=== PATIENT | female | born 1955 | race Caucasian/White ===

== ENCOUNTER 2022-08-25 09:19 | Outpatient (CLI) | payer MEDICARE, SELFPAY ==
[2022-08-25 10:02] LABS: Hematocrit 50.7 % (35.0-42.0); Hemoglobin 16.6 g/dL (11.7-13.8); Mean Corpuscular HGB Conc 32.7 g/dL (32.0-36.0); Mean Corpuscular Hemoglobin 34.3 pg (27.0-31.0); Mean Corpuscular Volume 104.8 fL (78.0-102.0); Mean Platelet Volume 9.5 fl (9.2-11.8); Platelet Count Result 299 K/mm3 (150-420); Red Blood Count 4.84 M/mm3 (4.20-5.40); Red Cell Distribution Width 13.3 % (11.6-14.4); White Blood Count 9.4 K/mm3 (4.8-10.8)
[2022-08-25 10:44] LABS: Alanine Aminotransferase 21 U/L (14-59); Albumin Level 3.6 g/dL (3.4-5.0); Alkaline Phosphatase 117 U/L (46-116); Anion Gap 10 mmol/L (8-16); Aspartate Amino Transferase 10 U/L (15-37); Bilirubin,Total 0.4 mg/dL (0.00-1.00); Blood Urea Nitrogen 14 mg/dL (7-18); Calcium 9.1 mg/dL (8.5-10.1); Carbon Dioxide 26 mmol/L (21-32); Chloride 102 mmol/L (98-108); Cholesterol 215 mg/dL (0-200); Estimated Glomerular Filt Rate > 60; Folic Acid 8.2 ng/mL (8.6->20); Glucose 87 mg/dL (70-99); HDL Direct 53 mg/dL (40-60); LDL Cholesterol Calculated 136 mg/dL (<130); Osmolality Calculated 285 mOsm/kg (285-295); Potassium 4.3 mmol/L (3.5-5.1); Sodium 138 mmol/L (136-145); Total Protein 7.3 g/dL (6.4-8.2); Triglycerides 129 mg/dL (0-150); Vitamin B12 251 pg/mL (193-986)
[2022-08-25 10:45] LABS: Thyroid Stimulating Hormone Reflex 1.55 u/IU/mL (0.36-3.74)
== END 2022-08-25 09:20 | disposition home or self-care (01) ==
LOC: CHSLAB 09:22
PROVIDERS: PCP Family Medicine; Visit Provider Family Medicine
DX: E53.8 Deficiency of other specified B group vitamins (principal); R53.83 Other fatigue; E11.9 Type 2 diabetes mellitus without complications
CPT/HCPCS: 36415; 80053; 80061; 82607; 82746; 84443; 85027

== ENCOUNTER 2023-04-04 15:54 | Outpatient (NON) | payer MEDICARE, SELFPAY | END 2023-04-04 15:55 | disposition home or self-care (01) | LOC: CHSLAB 15:56 | PROVIDERS: Visit Provider Nurse Practitioner Family | DX: R39.9 Unspecified symptoms and signs involving the genitourinary system (principal) | CPT/HCPCS: 87086 ==

== ENCOUNTER 2023-08-13 14:21 | Outpatient (CLI) | payer MEDICARE, SELFPAY ==
[2023-08-13 14:42] LABS: Basophils Absolute Auto 0.04 K/mm3 (0.00-0.10); Basophils Percent Auto 0.4 % (0.0-1.0); Eosinophils Absolute Auto 0.18 K/mm3 (0.02-0.50); Hematocrit 49.6 % (35.0-42.0); Hemoglobin 16.5 g/dL (11.7-13.8); Immature Granulocyte Absolute 0.02 K/mm3 (0.00-0.00); Immature Granulocyte Percent A 0.2 % (0.0-0.0); Lymphocytes Absolute Auto 3.12 K/mm3 (1.10-4.50); Lymphocytes Percent Auto 34.6 % (18.0-42.0); Mean Corpuscular HGB Conc 33.3 g/dL (32-36); Mean Corpuscular Hemoglobin 34.8 pg (27.0-31.0); Mean Corpuscular Volume 104.6 fL (78.0-102.0); Mean Platelet Volume 9.3 fl (9.2-11.8); Monocytes Absolute Auto 0.67 K/mm3 (0.10-0.90); Monocytes Percent Auto 7.4 % (2.0-11.0); Neutrophils Absolute Auto 4.98 K/mm3 (1.70-7.20); Neutrophils Percent Auto 55.4 % (50.0-70.0); Platelet Count Result 295 K/mm3 (150-420); Red Blood Count 4.74 M/mm3 (4.20-5.40)
[2023-08-13 14:44] LABS: Bilirubin Urine 1+ (Negative); Blood Urine 2+ (Negative); Color Urine Light Yellow (Yellow); Glucose Urine UA Negative (Negative); Ketones Urine Trace (Negative); Leukocyte Esterase Ur 3+ LEU/UL (Negative); Nitrate Urine Negative (Negative); Protein Urine Negative (Negative); Specific Grav Ur 1.025 (1.010-1.020); Urobilinogen Urine 0.2 mg/dL (0.2-1.0)
[2023-08-13 15:09] LABS: Albumin Level 3.6 g/dL (3.4-5.0); Alkaline Phosphatase 119 U/L (46-116); Amylase 93 U/L (25-115); Anion Gap 12 mmol/L (4-12); Aspartate Amino Transferase 15 U/L (15-37); Bilirubin,Total 0.3 mg/dL (0.00-1.00); Blood Urea Nitrogen 11 mg/dL (7-18); Calcium 8.9 mg/dL (8.5-10.1); Carbon Dioxide 25 mmol/L (21-32); Chloride 100 mmol/L (98-108); Estimated Glomerular Filt Rate > 60; Glucose 81 mg/dL (70-99); Lipase 220 U/L (16-77); Osmolality Calculated 282 mOsm/kg (285-295); Potassium 4.5 mmol/L (3.5-5.1); Sodium 137 mmol/L (136-145); Total Protein 7.3 g/dL (6.4-8.2)
[2023-08-13 15:47] LABS: Add Urine Microscopic? YES; Appearance Urine Cloudy (Clear); Bacteria Urine None seen /hpf; RBC Urine 0-2 /hpf (0-2); Squamous Epithelial Cell Urine Many /hpf (Few); WBC Urine >75 /hpf (0-3)
[2023-08-13 15:48] LABS: WBC Clumps Urine Present /hpf
[2023-08-13 15:54] LABS: Alanine Aminotransferase 16 U/L (14-59)
== END 2023-08-13 14:22 | disposition home or self-care (01) ==
PROVIDERS: PCP Nurse Practitioner Family; Visit Provider Nurse Practitioner Family
DX: N89.8 Other specified noninflammatory disorders of vagina (principal); R10.9 Unspecified abdominal pain; R82.90 Unspecified abnormal findings in urine
CPT/HCPCS: 36415; 80053; 81001; 82150; 83690; 85025; 87070; 87086; 87088

== ENCOUNTER 2023-08-14 07:46 | Outpatient (CLI) | payer MEDICARE, SELFPAY ==
--- NOTE | ~2023-08-14 | CT_ITS ---
CT of the Abdomen and Pelvis: Indication: Abdominal pain Technique: 2.5 mm axial scans were obtained through the abdomen and pelvis following intravenous adm inistration of 100 cc of Omnipaque 350. Dose reduction technique was used on this scan by utilizing a utomated exposure control and iterative reconstruction technique. The dose-length product (DLP) was 3 50.93 mGy-cm. Findings: Scans through the lung bases are unremarkable. The liver, pancreas, gallbladder, adrenals and kidneys are within normal limits. There is 9 mm hypode nse splenic structure, likely benign. There are atherosclerotic calcifications of the aorta. No lymp hadenopathy. There is wall thickening of the sigmoid colon. No keara bowel obstruction. No definite abscess or sue e air. Images through the pelvis were performed. Questionable mild urinary bladder wall thickening versus pa rtial distention. Status post hysterectomy. There is a 1.5 cm cystic structure at the vaginal cuff re gion (axial image 165).. No ascites. Impression: Wall thickening of sigmoid colon. Correlate for mild diverticulitis or other infectious/inflammatory colitis. Neoplasm felt to be less likely given the overall appearance, this would be a potential alte rnative consideration. 1.5 cm cystic structure at the vaginal cuff region, nonspecific. Prior hysterectomy. Reviewed, dictated and finalized at location . Impression: Wall thickening of sigmoid colon. Correlate for mild diverticulitis or other in fectious/inflammatory colitis. Neoplasm felt to be less likely given the overal l appearance, this would be a potential alternative consideration. 1.5 cm cystic structure at the vaginal cuff region, nonspecific. Prior hysterec diego.
== END 2023-08-14 07:47 | disposition home or self-care (01) ==
LOC: CHSIMG 07:48
PROVIDERS: PCP Family Medicine; Visit Provider Nurse Practitioner Family
DX: R10.9 Unspecified abdominal pain (principal); Z90.710 Acquired absence of both cervix and uterus
CPT/HCPCS: 74177; Q9967